=== PATIENT | male | born 1965 ===

== ENCOUNTER 2021-06-21 13:55 | Emergency (ER) | payer SELFPAY ==
[2021-06-21 16:36] LABS: PTT,PARTIAL THROMBOPLSTIN TIME 26.7 SEC (22.0-34.0)
[2021-06-21 16:37] LABS: ANION GAP 18.2 mEq/L (7-13); CHLORIDE,CL 111 mmol/L (98-107); SODIUM,NA 138 mmol/L (136-145)
[2021-06-21] MEDS ORDERED: Albuterol 0.083% 2.5 MG/3 ML Neb Soln NEB ONE (16:52)
[2021-06-21] MEDS ORDERED: Insulin Regular, Human 100 Units/ML 3 ML Vial IV ONE (16:55)
[2021-06-21] MEDS ORDERED: Dextrose 10% in Water 500 ML IV ONE (16:56)
[2021-06-21 17:10] LABS: AMPHETAMINES,URINE NEGATIVE (NEGATIVE); BARBITURATES,URINE NEGATIVE (NEGATIVE); BENZODIAZEPINE,URINE NEGATIVE (NEGATIVE); MDMA (ECSTASY), URINE NEGATIVE (NEGATIVE); METHADONE,URINE NEGATIVE (NEGATIVE); METHAMPHETAMINES,URINE NEGATIVE (NEGATIVE); OPIATES,URINE NEGATIVE (NEGATIVE); OXYCODONE,URINE NEGATIVE (NEGATIVE); PHENCYCLIDINE,URINE NEGATIVE (NEGATIVE); TCA,URINE NEGATIVE (NEGATIVE)
[2021-06-21] MEDS ORDERED: Sodium Polystyrene Sulfonate 15 GM/60 ML Susp 60 ML Bot PO ONE (20:28)
== END 2021-06-21 20:41 | disposition home or self-care (01) ==
LOC: DL.ED 13:55
DX: I12.0 Hypertensive chronic kidney disease with stage 5 chronic kidney disease or end stage renal disease (principal); E11.22 Type 2 diabetes mellitus with diabetic chronic kidney disease; N18.6 End stage renal disease; E87.6 Hypokalemia; E78.00 Pure hypercholesterolemia, unspecified; Z79.899 Other long term (current) drug therapy
CPT/HCPCS: 36415; 71045; 80053; 80305; 80307; 81001; 82947; 83605; 83880; 84132; 85025; 85610; 85730; 86140; 99285; J1815; 99284; J7613-GY